=== PATIENT | female | born 1975 | race Caucasian/White ===

== ENCOUNTER → 2017-12-02 | Day surgery (SDC) | payer OTHER ==
[~2017-12-02] VITALS: Ht 175.3 cm; Wt 111.1 kg
[~2017-12-02] MED LIST: VITAMIN D2000 UNIT PO
--- NOTE | 2017-12-02 13:26 | Operative Report ---
Operative/Inv Procedure Report Surgery Date: 12/02/17 Name of Procedure: Endometrial ablation Pre-Operative Diagnosis: Menorrhagia Post-Operative Diagnosis: Same Estimated Blood Loss: less than 50ml Surgeon/Accounting Manager Controller: Cookie BROWN,Armen Campbell Anesthesia: laryngeal mask airway Specimens: EMC Complications: None Condition: good Operative/Procedure Note Note: The patient was brought to the operating room placed in dorsal supine position a timeout was done with the patient awake. After the induction of anesthesia second timeout was done patient was placed in low stirrups examination under anesthesia was performed a speculum was placed in the vagina the anterior lip of the cervix was grasped with a single-tooth tenaculum. The endocervical canal was dilated This was followed by a sharp curettage OF the endometrial cavity which was sent to pathology for examination the uterus was sounded to 11 cm the cervix was measured to be 5 cm the NovaSure device was therefore set 6 cm the NovaSure device was seated the width of the endometrial canal was noted to be 4.5 cm after testing for integrity A70 second treatment cycle was undertaken there were no complications single-tooth tenaculum was removed and the patient was moved to recovery in good condition sponge instrument and needle counts were correct 3
== END ==
LOC: STS 01:19
DX: N92.0 Excessive and frequent menstruation with regular cycle (principal)
CPT/HCPCS: 81025; J0131; J2250

== ENCOUNTER 2018-07-10 16:44 | Emergency (ER) | payer OTHER ==
[~2018-07-10] VITALS: Ht 172.7 cm; Wt 111.1 kg
--- NOTE | 2018-07-10 16:54 | ED GI/GU/ABDOMINAL COMPLAINT ---
History of Present Illness General Chief Complaint: General Adult Stated Complaint: "MY DOCTOR OFFICE SENT ME" Source: patient Exam Limitations: no limitations Vital Signs & Intake/Output Vital Signs & Intake/Output Vital Signs Date Time Temp Pulse Resp B/P B/P Pulse O2 O2 Flow FiO2 Mean Ox Delivery Rate 07/10 1915 98.4 63 17 121/71 99 Room Air 07/104 Room Air 07/10 1653 98.0 82 18 149/89 98 Room Air Allergies Coded Allergies: orange (VOMITING AND MIGRAINES 11/23/17) Reconcile Medications Cholecalciferol (Vitamin D3) (Vitamin D) 2,000 UNIT CAPSULE 1 CAP PO DAILY SUPPLEMENT (Reported) Omeprazole 40 MG CAPSULE. 1 CAP PO DAILY STOMACH PAIN Triage Note: 42F WITH NAUSEA X1 WEEK AND ABDOMINAL PAIN SINCE FRIDAY TO PERIUMBILICAL AND LLQ AREA. DENIES VOMITING. +CHILLS, AFEBRILE. LAST BM YESTERDAY AND NORMAL DENIES BLACK OR BLOODY STOOLS. SIB WALK IN FOR CT TO R/O GASTROENTERITIS OR DIVERTICULITIS Triage Nurses Notes Reviewed? yes ? N Is pt currently ? No Onset: Abrupt Duration: day(s):, constant Timing: recent history HPI: 42-year-old female comes into the emergency room with complaints of abdominal pain. Patient was sent in by her doctor's office. Symptoms have been going on for days. She was sent in for further evaluation of blood work and CT scan. She denies any fever. Some associated nausea. No vomiting. History of cholecystectomy. Pain is located across mid abdomen. Sharp. Denies any diarrhea or changes in bowel movement. Denies any urinary symptoms (Cirilo Wolfe) Past History Travel History Traveled to [place] past 21 day No Medical History Any Pertinent Medical History? see below for history Neurological: NONE EENT: NONE Cardiovascular: NONE Respiratory: NONE Gastrointestinal: NONE Hepatic: NONE Renal: NONE Musculoskeletal: NONE Psychiatric: NONE Endocrine: NONE Surgical History Surgical History: non-contributory Psychosocial History What is your primary language Faroese Tobacco Use: Never used Family History Hx Contributory? No (Cirilo Wolfe) Review of Systems Review of Systems Constitutional: Reports: no symptoms. EENTM: Reports: no symptoms. Respiratory: Reports: no symptoms. Cardiovascular: Reports: no symptoms. GI: Reports: see HPI. Genitourinary: Reports: no symptoms. Musculoskeletal: Reports: no symptoms. Skin: Reports: no symptoms. Neurological/Psychological: Reports: no symptoms. Hematologic/Endocrine: Reports: no symptoms. Immunologic/Allergic: Reports: no symptoms. All Other Systems: Reviewed and Negative (Cirilo Wolfe) Physical Exam Physical Exam General Appearance: well developed/nourished, no apparent distress, alert, awake Head: atraumatic, normal appearance Eyes: Bilateral: normal appearance. Ears, Nose, Throat, Mouth: hearing grossly normal, moist mucous membrane Neck: normal inspection Respiratory: no respiratory distress Gastrointestinal: soft, tenderness (llq) Back: normal inspection Extremities: normal range of motion Neurologic/Psych: awake, alert, oriented x 3, normal gait, normal mood/affect Skin: intact, normal color Core Measures ACS in differential dx? No Sepsis Present: No Sepsis Focused Exam Completed? No (Cirilo Wolfe) Progress Differential Diagnosis: appendicitis, diverticulitis, gastritis, PUD/GERD, SBO Plan of Care: Orders Procedure Date/time Status URINE 07/10 1654 Complete URINALYSIS 07/10 1654 Complete LIPASE 07/10 1654 Complete COMPREHENSIVE METABOLIC PANEL 07/10 1654 Complete CBC WITHOUT DIFFERENTIAL 07/10 1654 Complete Laboratory Tests 07/10/18 1721: Urinalysis LIGHT H, Urine Color YEL, Urine Clarity HAZY H, Urine pH 6.0, Ur Specific [place] 1.025, Urine Protein NEG, Urine Ketones NEG, Urine Nitrite NEG, Urine Bilirubin NEG, Urine Urobilinogen 0.2, Ur Leukocyte Esterase NEG, Ur Microscopic SEDIMENT EXAMINED, Urine RBC 1-3, Urine WBC 3-5 H, Ur Epithelial Cells MANY H, Urine Bacteria MANY H, Urine Mucus MANY H, Urine Hemoglobin TRACE-INTACT, Urine Glucose NEG, Urine Test NEGATIVE 07/10/18 1713: Anion Gap 8, Estimated GFR > 60, BUN/Creatinine Ratio 15.0, Glucose 81, Calcium 9.2, Total Bilirubin 0.3, AST 25, ALT 46, Alkaline Phosphatase 55, Total Protein 7.2, Albumin 4.4, Globulin 2.8, Albumin/Globulin Ratio 1.6, Lipase 100, CBC w Diff NO MAN DIFF REQ, RBC 4.72, MCV 81.0, MCH 27.4, MCHC 33.8, RDW 13.2, MPV 8.0 , Gran % 58.8, Lymphocytes % 31.8, Monocytes % 7.6, Eosinophils % 1.1, Basophils % 0.7, Absolute Granulocytes 5.0, Absolute Lymphocytes 2.7, Absolute Monocytes 0.6, Absolute Eosinophils 0.1, Absolute Basophils 0.1 Diagnostic Imaging: Viewed by Me: CT Scan. Discussed w/RAD: CT Scan. Radiology Impression: PATIENT: ANAT BUSBY PRESENT AGE: 42 PATIENT ACCOUNT NO: [id number] : 74 LOCATION: [facility] ORDERING PHYSICIAN: Cirilo OJEDA SERVICE DATE: 07/10/18 EXAM TYPE : CAT - CT ABD & PELVIS W IV CONTRAST EXAMINATION: CT ABDOMEN AND PELVIS WITH CONTRAST CLINICAL INFORMATION: Lower abdominal pain. COMPARISON: CT scan abdomen pelvis 10/17/2012 TECHNIQUE: Multidetector volumetric imaging was performed of the abdomen and pelvis following IV administration of 95 mL of Optiray 320 intravenous contrast. Sagittal and coronal reformatted images were obtained on the technologist's workstation. DLP: 1325.9 mGy-cm FINDINGS: LUNG BASES: The visualized lung bases are unremarkable. LIVER, GALLBLADDER, AND BILIARY TREE: There is low attenuation of liver parenchyma due to fatty change. There is no focal liver lesion or intrahepatic bile duct dilatation. The gallbladder is absent. There is no bile duct dilatation. PANCREAS: Unremarkable. SPLEEN: Unremarkable. There is a small splenule measuring 1.5 cm at the anterior inferior splenic margin. ADRENAL GLANDS: Unremarkable. KIDNEYS AND URETERS: The kidneys are normal in size, shape, and attenuation. No hydronephrosis, hydroureter, or calculi seen. No perinephric stranding. BLADDER: Unremarkable. GASTROINTESTINAL TRACT: The small and large bowel are unremarkable. The appendix is unremarkable. ABDOMINAL WALL: No significant hernia is appreciated. LYMPH NODES: Normal. VASCULAR: Unremarkable. PELVIC VISCERA: Uterus is anteverted. There is a left adnexal follicle or cyst measuring 2 cm. There is no fluid in the cul-de-sac. OSSEOUS STRUCTURES: Unremarkable. IMPRESSION: No acute abnormality of the abdomen or the pelvis. DICTATED BY: Trung Capps MD DATE/TIME DICTATED:07/10/181834 HIDE MEASURING MACHINE OPERATOR:TORITO DATE/TIME TRANSCRIBED:1834 CONFIDENTIAL, DO NOT COPY WITHOUT APPROPRIATE AUTHORIZATION. < Electronically signed in Other Vendor System> SIGNED BY: Trung Capps MD [id number] Initial ED EKG: none Comments: 07/10/18 Patient clinically looks well. Patient is in no apparent distress. Nontoxic- appearing. No acute abdomen. No acute findings. Denies any chest pain or shortness of breath. Follow-up with special procedures nurse. Return if any concerns worsening symptoms. (Cirilo Wolfe) Departure Departure Disposition: HOME OR SELF CARE Condition: Stable Clinical Impression Primary Impression: Abdominal pain Referrals: Tremaine HATCH,Esau Hayden MD,Ahmet Additional Instructions: Take omeprazole as prescribed. Follow-up with special procedures nurse. Return if any concerns worsening symptoms. Please go over all results of today's visit with your primary care doctor. Contact your primary care doctor to let them know you were here in the emergency room. There may be nonspecific findings which may not be related to your visit today here in the emergency room but may require further evaluation and chronic monitoring by your primary care doctor. If you had a laceration today the chance of foreign body always remains. You should follow-up with your primary care doctor for recheck in 3-5 days for a wound check. If you had an x-ray done there is a chance that a fracture could have been missed on initial read and you should follow-up with your primary care doctor for repeat x-rays if symptoms persist. If your blood pressure was elevated here in the emergency room please have rechecked by [facility] primary care doctor within the next 48. If you were prescribed a narcotic here in the emergency room or any type of controlled substances you're not allowed to drive while taking this medication or operate any type of heavy machinery. Narcotics can make you feel lightheaded dizziness nausea and can cause constipation. You may need to supervisor opening and picking a stool softener. Thank you for choosing [facility] emergency room. Please return to the emergency room immediately if you have any other concerns worsening of symptoms. Departure Forms: Customer Survey General Discharge Information Prescriptions: Current Visit Scripts Omeprazole 1 CAP PO DAILY #30 CAP (Cirilo Wolfe) PA/LINE ANALYST Co-Sign Statement Statement: ED Attending supervision documentation- [] I saw and evaluated the patient. I have also reviewed all the pertinent lab results and diagnostic results. I agree with the findings and the plan of care as documented in the PA's/LINE ANALYST's documentation. [x] I have reviewed the ED Record and agree with the PA's/LINE ANALYST's documentation. [] Additions or exceptions (if any) to the PAs/LINE ANALYST's note and plan are summarized below: [] (Rober Ornelas DO)
[2018-07-10 18:09] LABS: ABSOLUTE BASOPHIL COUNT 0.1 /CUMM (0.0-0.2); ABSOLUTE EOSINOPHIL COUNT 0.1 /CUMM (0.0-0.7); ABSOLUTE LYMPH COUNT 2.7 /CUMM (1.2-3.4); ABSOLUTE MONOCYTE COUNT 0.6 /CUMM (0.10-0.60); BASOPHIL % 0.7 % (0.0-2.0); EOSINOPHIL % 1.1 % (0-5); GRANULOCYTE % 58.8 % (42.2-75.2); HEMATOCRIT 38.2 % (37-47); MEAN CORPUSCULAR HGB 27.4 PG (27.0-31.0); MEAN CORPUSCULAR HGB CONC 33.8 G/DL (33.0-37.0); PLATELET COUNT 300 /CUMM (130-400); RBC DISTRIBUTION WIDTH 13.2 % (11.5-14.5); RED BLOOD CELL CT 4.72 /CUMM (4.20-5.40); WHITE BLOOD CELL COUNT 8.5 /CUMM (4.8-10.8)
--- NOTE | 2018-07-10 18:49 | CT SCAN REPORT ---
EXAMINATION: CT ABDOMEN AND PELVIS WITH CONTRAST CLINICAL INFORMATION: Lower abdominal pain. COMPARISON: CT scan abdomen pelvis 10/17/2012 TECHNIQUE: Multidetector volumetric imaging was performed of the abdomen and pelvis following IV administration of 95 mL of Optiray 320 intravenous contrast. Sagittal and coronal reformatted images were obtained on the technologist's workstation. DLP: 1325.9 mGy-cm FINDINGS: LUNG BASES: The visualized lung bases are unremarkable. LIVER, GALLBLADDER, AND BILIARY TREE: There is low attenuation of liver parenchyma due to fatty change. There is no focal liver lesion or intrahepatic bile duct dilatation. The gallbladder is absent. There is no bile duct dilatation. PANCREAS: Unremarkable. SPLEEN: Unremarkable. There is a small splenule measuring 1.5 cm at the anterior inferior splenic margin. ADRENAL GLANDS: Unremarkable. KIDNEYS AND URETERS: The kidneys are normal in size, shape, and attenuation. No hydronephrosis, hydroureter, or calculi seen. No perinephric stranding. BLADDER: Unremarkable. GASTROINTESTINAL TRACT: The small and large bowel are unremarkable. The appendix is unremarkable. ABDOMINAL WALL: No significant hernia is appreciated. LYMPH NODES: Normal. VASCULAR: Unremarkable. PELVIC VISCERA: Uterus is anteverted. There is a left adnexal follicle or cyst measuring 2 cm. There is no fluid in the cul-de-sac. OSSEOUS STRUCTURES: Unremarkable. IMPRESSION: No acute abnormality of the abdomen or the pelvis.
[2018-07-10] MEDS ORDERED: OMEPRAZOLE40 M1 PO (19:05)
[2018-07-10 19:15] VITALS: BP 121/71
== END 2018-07-10 19:16 ==
LOC: ERH 16:44
PROVIDERS: Physician Assistant Medical
DX: R10.9 Unspecified abdominal pain (principal)
CPT/HCPCS: 74177; 81001; 81025